=== PATIENT | male | born 1940 | race Caucasian/White ===

== ENCOUNTER 2024-04-06 10:21 | Day surgery (SDC) | payer OTHER, SELFPAY ==
[2024-04-06 11:07] LABS: INR 2.75; PT 29.5 Sec (11.4-14.6)
[2024-04-06 11:09] VITALS: BP 152/71
[2024-04-06 11:13] VITALS: BMI 24.6
[2024-04-06 11:42] LABS: Glucose - Point of Care 134 mg/dl (70-99)
--- NOTE | 2024-04-06 12:56 | PTCARENOTE ---
Dr. Blount ta bedside. Explained to patient that INR is too high to perform procedure. Jessica () aware. IV d/c. Instructed to hold Coumadin until procedure and continue to take daily aspirin.
== END 2024-04-06 12:47 ==
LOC: CATH 10:21
PROVIDERS: ATTENDING PHYSICIAN Internal Medicine Cardiovascular Disease; FAMILY PHYSICIAN Nurse Practitioner Family; OTHER PHYSICIAN Internal Medicine Cardiovascular Disease
DX: I25.10 Atherosclerotic heart disease of native coronary artery without angina pectoris (principal); Z53.09 Procedure and treatment not carried out because of other contraindication; I48.91 Unspecified atrial fibrillation; I10 Essential (primary) hypertension; E11.9 Type 2 diabetes mellitus without complications; Z79.84 Long term (current) use of oral hypoglycemic drugs; Z79.01 Long term (current) use of anticoagulants; Z79.82 Long term (current) use of aspirin; R79.1 Abnormal coagulation profile
CPT/HCPCS: 85610; 82962

== ENCOUNTER 2024-04-11 07:34 | Day surgery (SDC) | payer OTHER, SELFPAY ==
[2024-04-11] VITALS (13 sets, daily range): BP systolic 124–150; BP diastolic 61–76; BMI 25.0
[2024-04-11 08:22] LABS: INR 1.28; PT 16.3 Sec (11.4-14.6)
[2024-04-11 09:03] LABS: Glucose - Point of Care 130 mg/dl (70-99)
--- NOTE | 2024-04-11 12:23 | ITS.CL.CATH ---
[employer] - Catheterization
Cardiac Catheterization
Procedure Report:
CARDIAC CATHETERIZATION REPORT
Date of Procedure: 04/11/2024
Referring: Christiano Martinez D.O.
INDICATION: Coronary artery disease status post bypass grafting, ICD shock.
PROCEDURE:
1. Left heart catheterization.
2. Coronary angiography.
3. Bypass angiography.
A total of 42 minutes of procedural/moderate sedation was utilized. An independent medical customer service representative was present to assist with and help manage the patient's level of consciousness and physiologic status.
ACCESS:
1. 6 German left radial artery using a modified Seldinger technique.
CATHETERS:
1. 5 German ALAN.
2. 5 German JL 4.
3. 5 German JR 4.
4. 5 German AL-1.
HEMODYNAMIC DATA
Weight (kg): 68.0
AO (s/d/x, mmHg): 127/65/83
LV (s/x mmHg): 131/22
LEFT VENTRICULOGRAPHY: Not performed.
CORONARY ANGIOGRAPHY
Dominance: Right.
Left Main: Normal size, bifurcating vessel. There is no coronary artery disease.
LAD: Normal size vessel giving rise to 1 significant diagonal. There is an 80% lesion in the proximal LAD, spanning the origin of the diagonal which is angulated at a 110 degree angle from the LAD and has a 90% lesion in its origin. This is
followed by a 90% lesion in the mid LAD. There is a 70% lesion in the apical LAD. The distal LAD is supplied by patent LUJAN graft.
Ramus: Congenitally absent.
Circumflex: Normal size, nondominant vessel giving rise to 2 obtuse marginals. The obtuse marginals originate in immediate succession. There are luminal irregularities in the circumflex system.
RCA: Normal size, dominant vessel. There is densely calcified, 50% lesion in the proximal to mid RCA. There is a hazy, 90% lesion at the bifurcation of the distal RCA and a third acute marginal. The distal RCA leading into the RPDA is
chronically totally occluded.
BYPASS GRAFT ANGIOGRAPHY
LUJAN to LAD: Normal size graft with end-to-side anastomosis to the mid LAD. There is no evidence of stenosis or graft degeneration.
SVG to RPDA: Occluded at its origin.
INTERVENTION(S)
None.
Closure Device: Vascular band.
Radiation (mGy): 421.92
DAP (cm2.Gy): 38.9389
Fluoroscopy time (minutes): 10.3
CONCLUSIONS
1. Right dominant circulation with an 80% lesion in the proximal LAD spanning the origin of the significant diagonal which is unfavorably angulated with its own 90% ostial lesion, followed by a 90% mid LAD lesion and a 70% lesion in the apical LAD,
luminal irregularities in the circumflex system, a densely calcified 50% lesion in the proximal to mid RCA, and 90% lesion at the bifurcation of the distal RCA and the third acute marginal and a chronically totally occluded distal RCA.
2. 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 Compared to the final pictures of the prior cardiac catheterization, the right coronary artery appears improved.
There has been progression of the proximal LAD and ostial diagonal disease, though the ankle makes it highly unfavorable for any attempt at percutaneous revascularization.
3. Moderately elevated filling pressures (LVEDP = 22 mmHg at 68.0 kg).
RECOMMENDATIONS:
1. Expectant management after cardiac catheterization via left radial approach.
2. Limited weight bearing on the left wrist for one week.
3. Continue aggressive secondary prevention, including high-dose, high potency statin, diabetes and blood pressure control.
4. Discontinue hydrochlorothiazide and start furosemide 20 mg daily given elevation in filling pressures. BMP in 1 week.
5. Continue amiodarone 200 mg daily for suppression of abnormal heart rhythms. While there are multiple ischemic nidus is for VT/VF, any intervention would be considered extreme risk due to prior dissection, dense calcification and poor vessel
angulation. In the absence of angina, I would favor medical management.
Copy to: Christiano Martinez D.O., RON [place]
Chris Blount DO, FACC, FACP
[2024-04-11] MEDS: NSS 205 ML IV (14:33)
== END 2024-04-11 15:35 | disposition home or self-care (01) ==
LOC: CATH 07:34
PROVIDERS: Nurse Practitioner; ATTENDING PHYSICIAN Internal Medicine Cardiovascular Disease; FAMILY PHYSICIAN Nurse Practitioner Family
DX: I25.10 Atherosclerotic heart disease of native coronary artery without angina pectoris (principal); I25.82 Chronic total occlusion of coronary artery; I48.0 Paroxysmal atrial fibrillation; I11.0 Hypertensive heart disease with heart failure; I50.32 Chronic diastolic (congestive) heart failure; Z95.810 Presence of automatic (implantable) cardiac defibrillator; Z95.1 Presence of aortocoronary bypass graft; Z95.2 Presence of prosthetic heart valve; E78.5 Hyperlipidemia, unspecified; E11.9 Type 2 diabetes mellitus without complications; Z87.891 Personal history of nicotine dependence; Z82.49 Family history of ischemic heart disease and other diseases of the circulatory system; Z79.82 Long term (current) use of aspirin; Z79.84 Long term (current) use of oral hypoglycemic drugs; Z79.01 Long term (current) use of anticoagulants
CPT/HCPCS: 82962; 85610; 93459; C1769; C1894